=== PATIENT | male | born 1975 | race Caucasian/White ===

== ENCOUNTER 2018-12-16 17:58 | Emergency (ER) | payer BC, MEDICAID ==
[2018-12-16 18:07] VITALS: BP 143/95
[2018-12-16] MEDS ORDERED: TETANUS/DIPHTHERIA/PERTUSSIS 0.5 ML SYRINGE IM ONE (18:10)
[2018-12-16] MEDS ORDERED: BUFFERED LIDOCAINE 10 ML SYRINGE SUBQ STA (18:10)
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
[2018-12-16] MEDS ORDERED: LIDOCAINE 1%-EPI 1:100000 30 ML MDV ONE (18:31)
== END 2018-12-16 18:58 | disposition home or self-care (01) ==
LOC: ED 17:58
DX: S81.012A Laceration without foreign body, left knee, initial encounter (principal); S71.112A Laceration without foreign body, left thigh, initial encounter; W45.8XXA Other foreign body or object entering through skin, initial encounter; Y93.89 Activity, other specified; Z23 Encounter for immunization; F17.200 Nicotine dependence, unspecified, uncomplicated
CPT/HCPCS: 12001; 12032; 90471; 99283